=== PATIENT | male | born 1950 | race African-American/Black ===

== ENCOUNTER 2022-11-08 13:39 | Outpatient (CLI) | payer MEDICARE ==
[2022-11-08] MEDS ORDERED: Iopamidol 300 61% 100 ML VIAL FS ONE (14:44)
== END 2022-11-08 13:40 | disposition home or self-care (01) ==
LOC: CSHCT 13:39
PROVIDERS: ATTEND Urology
DX: N40.1 Benign prostatic hyperplasia with lower urinary tract symptoms (principal); N20.0 Calculus of kidney; R31.0 Gross hematuria; N28.1 Cyst of kidney, acquired; N32.89 Other specified disorders of bladder; K76.89 Other specified diseases of liver; D73.4 Cyst of spleen
CPT/HCPCS: 74178; Q9967